=== PATIENT | male | born 1945 | race Caucasian/White ===

== ENCOUNTER → 2017-05-23 | Outpatient (CLI) | payer OTHER ==
[~2017-05-23] MED LIST: ALEVE220 MG PO; AMLODIPINE-BEN1 EAC2 PO; AMLODIPINE-BEN1 EACH; ASPIR 8181 MG PO; AUGMENTIN 875-1 EACH PO; BACTRIM DS TAB1 EACH PO; CIPRO500 MG PO; COLACE100 MG PO; ENDOCET 5-3251 EACH PO; ENDOCET 7.5-321 EACH PO; FERROUS SULFAT325 M1 PO; FLEXERIL PO; FLOMAX0.4 MG PO; HYDROCHLOROTHIA25 M1; HYDROCODON-ACE1 EAC7 PO; IRON236 MG PO; LOTREL 10-20 M1 EACH; LOTREL 10-20 M1 EACH PO; MACROBID 100 M100 M1 PO; MELOXICAM7.5 MG PO; MOBIC7.5 MG PO; NEURONTIN 300300 M1 PO; NEXIUM40 MG PO; NORCO 5-325 TA1 EACH PO; OXYBUTYNIN 5 MG5 M1 PO; OXYCODONE-APAP1 EAC6 PO; PERCOCET 10-321 EACH PO; ROBAXIN 750 MG750 M1 PO; SLOW RELEASE I140 MG PO; TYLENOL325 MG PO; XARELTO10 MG PO; ZANAFLEX4 MG PO; ZOFRAN4 MG PO
[2017-05-23 09:23] LABS: CREATININE 0.9 mg/dL (0.7-1.3)
== END ==
LOC: CAT 08:52
PROVIDERS: Internal Medicine Medical Oncology
DX: C61 Malignant neoplasm of prostate (principal); K57.32 Diverticulitis of large intestine without perforation or abscess without bleeding; N28.1 Cyst of kidney, acquired

== ENCOUNTER 2017-08-02 17:59 | Emergency (ER) | payer OTHER ==
[~2017-08-02] VITALS: Ht 172.7 cm; Wt 90.7 kg
[2017-08-02 18:01] VITALS: BP 132/72
[2017-08-02] MEDS ORDERED: FLOMAX0.4 MG PO (18:56)
[2017-08-02] MEDS ORDERED: BACTRIM DS TAB1 EACH PO (18:57)
[2017-08-02] MEDS ORDERED: PHENAZOPYRIDIN200 M2 PO (18:57)
[2017-08-02 19:56] LABS: HEMOGLOBIN 15.6 gm/dL (14.0-18.0); MCH 26.9 pg (26.0-34.0); MCHC 32.6 g/dL (28.0-37.0); MCV 82.7 fL (80.0-100.0); PLATELET COUNT 140 thou/uL (150-400); RDW 21.9 % (10.5-14.5); WBC 6.3 thou/uL (4.0-11.0)
[2017-08-02 20:07] LABS: CALCIUM 9.1 mg/dL (8.5-10.1); CREATININE 1.2 mg/dL (0.7-1.3); POTASSIUM 4.2 mmol/L (3.5-5.1)
[2017-08-02 20:26] LABS: ABSOLUTE NEUTROPHILS 4.5 thou/uL (1.4-8.2); ANISOCYTOSIS 1+; POLYCHROMASIA OCCASIONAL
[2017-08-02 20:43] LABS: SSA (PROTEIN CONFIRMATORY) ND mg/dL (Negative); URINE BILIRUBIN ND (Negative); URINE BLOOD ND (Negative); URINE COLOR ORANGE; URINE GLUCOSE-RANDOM* ND (Negative); URINE KETONES ND (Negative); URINE LEUKOCYTES-REFLEX ND (Negative); URINE NITRITE-REFLEX ND (Negative); URINE PROTEIN (DIPSTICK) ND (Negative); URINE REDUCING SUBSTANCE ND %; URINE SPECIFIC GRAVITY ND (1.005-1.035); URINE UROBILINOGEN ND E.U./dl (0.2-1.0)
[2017-08-02 20:44] LABS: URINE CLARITY CLOUDY
[2017-08-02 20:47] LABS: BACTERIA-REFLEX 1-9 Few /HPF (None Seen); CASTS None Seen /LPF (None Seen); MUCUS 4-6 Moderate strn/LPF (None Seen); SQUAMOUS 0-3 Few /LPF (0-3); URINE WBC-REFLEX >25 Many /HPF (0-5)
[2017-08-02 20:48] LABS: CRYSTALS None Seen /LPF (None Seen)
[2017-08-02] MEDS ORDERED: IBUPROFEN 600600 M1 PO (21:14)
[2017-09-28] MEDS ORDERED: FEROSUL325 M1 PO (11:58)
== END 2017-08-02 21:36 | disposition home or self-care (01) ==
LOC: ER 17:59
PROVIDERS: Physician Assistant
DX: N39.0 Urinary tract infection, site not specified (principal); I10 Essential (primary) hypertension; M10.9 Gout, unspecified; M19.90 Unspecified osteoarthritis, unspecified site; Z90.49 Acquired absence of other specified parts of digestive tract; Z87.01 Personal history of pneumonia (recurrent); K21.9 Gastro-esophageal reflux disease without esophagitis; Z96.643 Presence of artificial hip joint, bilateral

== ENCOUNTER → 2017-10-05 | Outpatient (CLI) | payer OTHER ==
[~2017-10-05] VITALS: Ht 172.7 cm; Wt 86.2 kg
[~2017-10-05] MED LIST changes: +FEROSUL325 M1 PO; +IBUPROFEN 600600 M1 PO; +PHENAZOPYRIDIN200 M2 PO
--- NOTE | ~2017-10-05 | P ---
[facility] [place] [address] PROCEDURE REPORT Name: MARCELINO CALLOWAY Room #: REG [facility]#: [id number] Admission: 10/05/17 Attend Phys: Phil Abad MD Discharge: Date of : 43 Report #: [id number] THIS REPORT FOR: //name// CC: Phil Martinez BRIEF HISTORY: The patient is a 72-year-old male with recurrent solid food dysphagia. He was last dilated more than 10 years ago. He denies reflux symptoms. There has been no weight loss or chest pain. PREOPERATIVE DIAGNOSIS: Recurrent solid food dysphagia. POSTOPERATIVE DIAGNOSES: 1. Mild erosive esophagitis. 2. Small to moderate hiatus hernia. 3. Moderately severe diffuse gastritis. 4. Dysphagia. 5. 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 6. Tortuous distal esophagus. MEDICATIONS: Deep sedation with propofol for anesthesia. SPECIMEN: Biopsies of gastritis. ESTIMATED BLOOD LOSS: 3 mL. PROCEDURE: EGD with biopsy. FINDINGS: Prior to propofol sedation, the procedure of upper endoscopy and dilation was reviewed with the patient as well as potential risks, benefits, and complications. He indicates he understands and desires to proceed. DESCRIPTION OF PROCEDURE: With the patient in left lateral decubitus position, the Fuji video endoscope was inserted in the cervical esophagus under direct vision without difficulty. Examination of this organ through its entire length revealed normal esophageal mucosa down to the distal esophagus. At the squamocolumnar junction, erosions were noted consistent with mild esophagitis. The squamocolumnar junction was also somewhat irregular raising a question of Sheikh's esophagus and multiple biopsies were obtained. These changes may be due to esophagitis. In addition, in view of his dysphagia, definite stricture or ring was not seen at the GE junction or anywhere in the esophagus. However, it is noted he does have some tertiary contractions, which were noted as the scope was advanced and also a tortuous distal esophagus, but no obstruction. The scope was advanced into an approximately 3 cm sliding type hiatus hernia. The mucosa and the hernia was normal. The scope was advanced in the stomach, was examined on end view as well as retroflexed views. There was a moderate [facility] [address] [place] [address] PROCEDURE REPORT Name: MARCELINO CALLOWAY Nichol Room #: REG [facility].#: [id number] Admission: 10/05/17 Attend Phys: Phil Abad MD Discharge: Date of : 43 Report #: [id number] diffuse gastritis without evidence of ulcers or erosions. There is no evidence of obstructing lesion. Upon retroflexion, the hiatus hernia was again noted. Multiple biopsies obtained of the gastritis. The pylorus, duodenal bulb, and postbulbar sweep were inspected and noted to be within normal limits. At that point, the scope was slowly withdrawn and careful circumferential views confirmed the above findings. The patient tolerated the procedure well. Following procedure, he was dilated with passage of a 50-Alban[place] Benavides dilator. There was no resistance. CONDITION OF THE PATIENT UPON DISCHARGE: Following procedure, the patient was drowsy. He will be discharged home when fully ambulatory INSTRUCTIONS TO THE PATIENT AND FAMILY AT TIME OF DISCHARGE: The patient with findings of esophagitis and the question of Sheikh esophagus. We will follow up on biopsies and make further recommendations. We will start him on omeprazole 20 mg daily. He denies typical reflux symptoms. He may benefit from long-term administration. Also, he is to return for dilation on an as needed basis. If he has recurrent symptoms, return to see me in followup. Otherwise, he will follow up with Dr. Aubrey Martinez. By: 0826 1132 Phil Abad MD /nt
--- NOTE | ~2017-10-05 | S ---
[facility] [place] [address] SURGICAL PATH RPT PROCEDURE Name: REINIER BAZAN Room #: REG CL [facility].#: [id number] Admission: 10/05/17 Date of : 43 Discharge: Report #: [id number] Path Case #: [id number] PATHOLOGY REPORT COLLECTION DATE: 10/05/2017 RECEIVED DATE: 10/05/2017 SUBMITTING PHYS: Dr. Phil Abad OTHER PHYS: Dr. Aubrey Martinez SPECIMEN(S) RECEIVED: A.Gastric bx B.Bx of GE junction r/o Sheikh's * * * * * * * * * * * * FINAL DIAGNOSIS: A. "Gastric bx," biopsy: - Gastric mucosa with mild reactive changes and mild chronic inflammation. - Negative H. pylori immunohistochemical stain (block A1); control reacted appropriately. B. "Bx of GE junction r/o Sheikh's," biopsy: - Gastric cardiac type mucosa with reactive changes, acute and chronic inflammation, and focal minimal intestinal metaplasia; no dysplasia seen. COMMENT: Clinical and endoscopic correlation is required. (CLW:mgr; 10/06/2017) PATHOLOGIST: Dedra Ascencio M.D. REPORT ELECTRONICALLY SIGNED BY: Dedra Ascencio M.D. DATE/TIME: 10/06/2017 17:28 * * * * * * * * * * * * GROSS PATHOLOGY: A. Received in formalin labeled, "Reinier Bazan gastric BX," are 4 fragments of ny soft tissue measuring between 0.6 x 0.2 x 0.1 cm and 0.2 x 0.2 x 0.1 cm. They are entirely submitted in cassette A1. B. Received in formalin labeled, "Reinier Bazan BX of GE junction rule out Sheikh's," are multiple fragments of ny soft tissue measuring 1.2 x 0.6 x 0.2 in aggregate. They are entirely submitted in cassette B1. (SDY; 10/05/2017) CLINICAL HISTORY: [facility] [employer] [place] [address] SURGICAL PATH RPT PROCEDURE Name: REINIER BAZAN Room #: REG [facility]..#: [id number] Admission: 10/05/17 Date of : 43 Discharge: Report #: [id number] Path Case #: [id number] Dysphagia Esophagitis, hiatal hernia, gastritis, dysphagia Rule out Sheikh's INITIAL CPT CODE(S): A; 31772, 74236 B; 70705 Professional services performed by [facility] at [place] [address] [address] [facility] [place] [address] Technical services performed by [facility] at [address] [place] [address], [address], [place] [address]. [facility] [address] [place] [address] PHONE: [phone] DIRECTOR: Hong Dyson M.D. * * * END OF REPORT * * *
== END | disposition home or self-care (01) ==
LOC: GI 06:54
DX: K29.50 Unspecified chronic gastritis without bleeding (principal); K22.2 Esophageal obstruction; K20.8 Other esophagitis; K44.9 Diaphragmatic hernia without obstruction or gangrene; K22.8 Other specified diseases of esophagus; G47.33 Obstructive sleep apnea (adult) (pediatric); I10 Essential (primary) hypertension; D64.9 Anemia, unspecified; K21.9 Gastro-esophageal reflux disease without esophagitis; M19.90 Unspecified osteoarthritis, unspecified site; Z85.46 Personal history of malignant neoplasm of prostate; Z87.891 Personal history of nicotine dependence; Z90.49 Acquired absence of other specified parts of digestive tract; Z98.890 Other specified postprocedural states; Z96.643 Presence of artificial hip joint, bilateral; Z96.611 Presence of right artificial shoulder joint; Z79.899 Other long term (current) drug therapy; Z87.440 Personal history of urinary (tract) infections; Z87.39 Personal history of other diseases of the musculoskeletal system and connective tissue
CPT/HCPCS: 62110; 62900

== ENCOUNTER 2018-07-13 13:55 | Emergency (ER) | payer OTHER ==
[~2018-07-13] VITALS: Ht 172.7 cm; Wt 88.5 kg
[2018-07-13] MEDS ORDERED: OMEPRAZOLE 20 M20 M1 PO (14:11)
[2018-07-13] MEDS ORDERED: IRON325 PO (14:12)
[2018-07-13 15:05] LABS: URINE BILIRUBIN NEGATIVE (Negative); URINE CLARITY CLEAR; URINE COLOR YELLOW; URINE GLUCOSE-RANDOM* NEGATIVE (Negative); URINE KETONES NEGATIVE (Negative); URINE PROTEIN (DIPSTICK) NEGATIVE (Negative)
[2018-07-13 15:06] LABS: URINE BLOOD 2+ (Negative); URINE LEUKOCYTES 3+ (Negative); URINE NITRITE NEGATIVE (Negative); URINE UROBILINOGEN 0.2 E.U./dl (0.2-1.0)
[2018-07-13 15:33] LABS: URINE WBC >25 Many /HPF (0-5)
[2018-07-13 15:34] LABS: BACTERIA >30 Many /HPF (None Seen); CASTS None Seen /LPF (None Seen); CRYSTALS None Seen /LPF (None Seen); SQUAMOUS None Seen /LPF (0-3); URINE RBC 0-2 Rare /HPF (0-2)
[2018-07-13] MEDS ORDERED: KEFLEX500 M1 PO (15:50)
[2018-07-13 16:03] VITALS: BP 128/62
== END 2018-07-13 16:04 | disposition home or self-care (01) ==
LOC: ER 13:55
PROVIDERS: Emergency Medicine
DX: N39.0 Urinary tract infection, site not specified (principal); R33.9 Retention of urine, unspecified; I10 Essential (primary) hypertension; K21.9 Gastro-esophageal reflux disease without esophagitis; M19.90 Unspecified osteoarthritis, unspecified site; M10.9 Gout, unspecified; D64.9 Anemia, unspecified; G47.30 Sleep apnea, unspecified; Z96.643 Presence of artificial hip joint, bilateral; Z90.79 Acquired absence of other genital organ(s); Z87.01 Personal history of pneumonia (recurrent); Z87.891 Personal history of nicotine dependence

== ENCOUNTER → 2021-01-20 | Outpatient (CLI) | payer OTHER ==
[~2021-01-20] VITALS: Ht 172.7 cm; Wt 86.2 kg
[~2021-01-20] MED LIST changes: +FERRETTS325 MG PO; +GAS-X125 MG PO; +IRON325 PO; +KEFLEX500 M1 PO; +MELATONIN3 M1 PO; +OMEPRAZOLE 20 M20 M1 PO; +PRILOSEC OTC20 MG PO; +TRAZODONE HCL50 MG PO; +VITAMIN D325 MC5 PO; +XALATAN2.5 M1 OPHTHALMIC
--- NOTE | 2021-01-21 13:24 | P ---
[facility] [place] [address] PROCEDURE REPORT Name: MARCELINO CALLOWAY Room #: REG [facility].#: [id number] Admission: 01/20/21 Attend Phys: Fernando Arevalo Discharge: Date of : 43 Report #: [id number] THIS REPORT FOR: cc: Aubrey Martinez MD, Neal A. MD McElhinney, Christian C. MD ~ cc: Aubrey Martinez MD DATE OF SERVICE: 01/20/2021 PROCEDURE PERFORMED: EGD with biopsies and removal of biliary stent. HISTORY OF PRESENT ILLNESS: The patient is a 75-year-old male who was visiting [place], [place] last month and unfortunately had an episode of acute pancreatitis. He had had a previous cholecystectomy years before, apparently had dilation of the ducts and therefore underwent an ERCP on 12/18/2020. They noted some dilation of the duct. Cytology was performed. I do not have a copy of these results. Some sludge was removed after sphincterotomy and balloon sweeps and a stent was placed. He is here today for stent removal. He denies any symptoms at this time. DESCRIPTION OF PROCEDURE: The risks and benefits of the procedure were explained to the patient, those risks including but not limited to bleeding, perforation, and the risk of sedation. He understood these risks and gave informed consent. Sedation was given using propofol per anesthesia. Next, using a standard Olympus upper endoscope, the scope was placed in the patient's mouth and advanced under direct vision through the esophagus, stomach and into the second portion of the duodenum. The larynx was normal in appearance. The upper and mid esophagus was normal. In the distal esophagus, a possible short segment of Sheikh's esophagus was noted. Biopsies were obtained. Upon entering the stomach, a small hiatal hernia was noted. Overall, the gastric mucosa was normal. The pylorus was normal and patent. The duodenal bulb and first portion were normal. In the second portion, the biliary plastic stent was noted. This was grasped with a snare and removed without difficulty. The major papilla was normal in appearance after removal. The scope at this point was then withdrawn and the procedure terminated. The patient tolerated the procedure well. IMPRESSION: 1. 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 2. Small hiatal hernia. 3. Status post removal of biliary stent. RECOMMENDATIONS: 1. Await biopsy results. 2. Observe the patient post-procedure. [address] [address] PROCEDURE REPORT Name: MARCELINO CALLOWAY Room #: REG CLI Jenny#: [id number] Admission: 01/20/21 Attend Phys: Fernando Arevalo Discharge: Date of : 43 Report #: [id number] 3. If biopsies are positive for Sheikh's esophagus, recommend daily PPI therapy. Thank you for allowing me to participate in his care. <ELECTRONICALLY SIGNED> By: Fernando Muller MD 01/21/21 1324 1213 [id number] Fernando Muller MD /nt
--- NOTE | 2021-01-26 11:07 | PATH ---
[facility] [address] [place] [address] PATHOLOGY RPT PROCEDURE Name: REINIER BAZAN KARL Room #: REG [facility].#: [id number] Admission: 01/20/21 Date of : 43 Discharge: Report #: [id number] Path Case #: [id number] [facility] Accession Number: [id number] . 01 Material submitted: . esophagus - BIOPSY DISTAL ESOPHAGUS RULE OUT BURNHAM'S. Modifiers: distal . 01 Clinical history: . DTS/EGD/STENT REMOVAL . 02 Diagnosis: Gastroesophageal mucosa, distal esophagus, rule out Burnham's, endoscopic biopsy: - Focal specialized columnar epithelium (gastric cardia -type mucosa) with intestinal metaplastic change, compatible with Burnham's metaplasia. - Negative for dysplasia or malignancy. - Squamous mucosa with mild esophagitis. (IUV:pit; 01/25/2021) QTP 01/25/2021 1804 Local . 02 Comment: The above diagnosis of Burnham's esophagus is made due to the presence of intestinal metaplasia and with the assumption that the biopsies were obtained from the columnar mucosa in the distal esophagus located at least 1 cm proximal to the top of the gastric folds as per the 2016 ACG guidelines. (IUV:pit; 01/25/2021) . . 02 Electronically signed: . Ivana Iraheta MD, Pathologist NPI- [id number] . 01 Gross description: . The specimen is received in formalin, labeled "Reinier Bazan BX distal esophagus". Received are 2 segments of pale ny tissue ranging in size from 0.3 to 0.5 cm in maximum dimensions. The specimen is submitted entirely in cassette A1.([facility]; 01/22/2021) [facility] 01/22/2021 1259 Local . 02 Pathologist provided ICD-10: K22.70, K20.90 . 02 CPT . 836914 Specimen Comment: A courtesy copy of this report has been sent to [phone] [address] PATHOLOGY RPT PROCEDURE Name: REINIER BAZAN [id number] Admission: 01/20/21 Date of : 43 Discharge: Report #: [id number] Path Case #: [id number] Specimen Comment: [id number] Specimen Comment: Report sent to / DR HUDDLESTON Performed at: [address] [facility] [address], [place], [place] [id number] MD Gildardo Gtz MD Phone: [phone] Performed at: [address] [facility] [id number] MD Ivana Iraheta MD Phone: [phone]
== END | disposition home or self-care (01) ==
LOC: GI 10:11
PROVIDERS: ATTEND Specialist
DX: K22.70 Barrett's esophagus without dysplasia (principal); K44.9 Diaphragmatic hernia without obstruction or gangrene; K21.00 Gastro-esophageal reflux disease with esophagitis, without bleeding; I10 Essential (primary) hypertension; M19.90 Unspecified osteoarthritis, unspecified site; M10.9 Gout, unspecified; D64.9 Anemia, unspecified; G47.30 Sleep apnea, unspecified; Z98.890 Other specified postprocedural states; Z79.899 Other long term (current) drug therapy; Z85.46 Personal history of malignant neoplasm of prostate; Z90.49 Acquired absence of other specified parts of digestive tract; Z96.643 Presence of artificial hip joint, bilateral; Z96.611 Presence of right artificial shoulder joint; Z96.89 Presence of other specified functional implants
CPT/HCPCS: 62110; 62900

== ENCOUNTER → 2021-03-10 | Outpatient (CLI) | payer OTHER | LOC: SJCVCIMAG 09:46 | PROVIDERS: ATTEND Family Medicine | DX: I08.8 Other rheumatic multiple valve diseases (principal); R01.1 Cardiac murmur, unspecified; I10 Essential (primary) hypertension ==